=== PATIENT | male | born 1995 | race Caucasian/White ===

== ENCOUNTER 2022-07-01 16:44 | Emergency (ER) | payer OTHER ==
[2022-07-01 17:13] VITALS: BP 121/78; PULSE 62; RESP 16; TEMP 97.8; BMI 21.7
[2022-07-01] MEDS ORDERED: IBUPROFEN 600 MG TABLET (FP) PO ONE ×2 (17:19)
== END 2022-07-01 18:49 | disposition home or self-care (01) ==
LOC: JERFT 16:44 → JER 16:44 → JERFT 18:49
DX: S93.492A Sprain of other ligament of left ankle, initial encounter (principal); W10.9XXA Fall (on) (from) unspecified stairs and steps, initial encounter; X50.0XXA Overexertion from strenuous movement or load, initial encounter
CPT/HCPCS: 73610-TC-LT-FY; 99283-25